=== PATIENT | male | born 1950 | race Caucasian/White ===

== ENCOUNTER 2016-09-18 05:35 | Emergency (ER) | payer BC, OTHER ==
[~2016-09-18] VITALS: Ht 177.8 cm; Wt 105.0 kg
[~2016-09-18 05:35] MED LIST: ASPI325T32 PO; ATEN-138 PO; CLOP75TA27 PO; EZET10TA3 PO; FOLI-49 PO; IBUP-1542 PO; ISOS60TA52 PO; LORA-401 PO; OXYC-281 PO; PANT40TA3 PO
[2016-09-18 05:37] VITALS: Ht 177.8 cm; Wt 105.0 kg
[2016-09-18] MEDS ORDERED: ONDANSETRON 4 MG INJ IV STA (06:25)
[2016-09-18] MEDS ORDERED: morphine 4 MG/ML VIAL IV STA (06:25)
--- NOTE | 2016-09-18 07:36 | RADRPT ---
PROCEDURE: XR Chest. TECHNIQUE: Single frontal radiograph. CLINICAL INDICATION: Abdominal Pain. COMPARISON: 04/20/2015. FINDINGS: There is no focal consolidation, pneumothorax, pleural effusions. Cardiomediastinal silhouette is u nremarkable. There are aortic calcifications. IMPRESSION: No acute intrathoracic process. RPTAT: EE .Herbert San MD, MD Date Time Electronically viewed and signed by .Herbert San MD, MD on 09/18/2016 07:40 .C/
[2016-09-18 07:39] LABS: ADD SCAN DIFF NO
[2016-09-18 07:49] LABS: BASOPHILS % 0.3 % (0.0-2.0); EOSINOPHILS # 0.1 10^3/ul (0.0-0.5); EOSINOPHILS % 1.9 % (0.0-7.0); HEMATOCRIT 42.2 % (42.0-52.0); HEMOGLOBIN 13.8 g/dl (14.0-18.0); LYMPHOCYTES # 1.6 10^3/ul (0.8-2.9); LYMPHOCYTES % 26.8 % (15.0-51.0); MEAN CORPUSCULAR HEMOGLOBIN 30.1 pg (29.0-33.0); MEAN CORPUSCULAR HGB CONC 32.7 g/dl (32.0-37.0); MEAN CORPUSCULAR VOLUME 92.1 fl (82.0-101.0); MEAN PLATELET VOLUME 9.7 fl (7.4-10.4); MONOCYTE # 0.5 10^3/ul (0.3-0.9); MONOCYTES % 8.2 % (0.0-11.0); NEUTROPHIL # 3.6 10^3/ul (1.6-7.5); NEUTROPHILS % 62.6 % (39.0-77.0); PLATELET COUNT 164 10^3/UL (140-415); RED BLOOD COUNT 4.58 10^6/ul (4.70-6.10); RED CELL DISTRIBUTION WIDTH 13.4 % (11.5-14.5); WHITE BLOOD COUNT 5.8 10^3/ul (4.8-10.8)
--- NOTE | 2016-09-18 08:03 | RADRPT ---
PROCEDURE: CT ABDOMEN/PELVIS WITHOUT CONTRAST CLINICAL INDICATION: 66-year-old male with abdominal pain. TECHNIQUE: The study was performed utilizing a GE [employer]ed VCT 64-slice CT scanner. Direct axia l sections were obtained through the abdomen and pelvis without the use of intravenous contrast mate rial. Sagittal and coronal reformations were obtained. One or more of the following dose reduction t echniques were utilized: automated exposure control, adjustment of the mA and/or kV according to pat ient's size or use of iterative reconstruction technique. The images were reviewed on a PACS workst [email or web address]. CTD/vol = 20.7 mGy; Total Exam DLP = 1308.7 mGy-cm. COMPARISON: CT abdomen/pelvis December 18, 2013. FINDINGS: Right coronary artery calcifications are noted. There is mild chronic atelectasis and/or scarring w ithin the partially visualized right middle lobe and lingula. There is trace left basilar subsegmen liu atelectasis.. There is no evidence for significant pleural effusion. The liver has a normal si ze and contour without focal areas of abnormal density. No intrahepatic nor extrahepatic biliary edmundo liu dilatation is seen. The gallbladder demonstrates no wall thickening nor pericholecystic fluid. N o biliary stones are evident. The pancreas is without areas of abnormal attenuation. The spleen is identified and has a normal size without abnormal density. The adrenal glands are unremarkable. The kidneys are without abnormal density. No hydroureteronephrosis nor nephroureterolithiasis is evident . The urinary bladder contains urine. There is retained stool identified within the ascending and tr ansverse colon without obstruction.. The appendix is diminutive and is without abnormal thickening or surrounding inflammatory reaction. The prostate is not enlarged. There is no significant free fl uid. There are small bilateral inguinal hernias containing fat. The aortoiliac vessels are mildly calcified but without aneurysmal dilatation. The osseous structures are intact. IMPRESSION: 1. No CT evidence for obstructive uropathy or renal calculi. 2. Retained stool without obstruction. 3. No CT evidence for appendicitis. 4. Small bilateral inguinal hernias containing fat. 5. Vascular calcifications. .eMndez Pruett MD, MD Date Time Electronically viewed and signed by .Mendez Pruett MD, on 09/18/2016 08:03 .Christo
[2016-09-18 08:18] LABS: CHLORIDE 110 mmol/L (97-110); SODIUM 142 mmol/L (135-144)
[2016-09-18 08:19] LABS: POTASSIUM 4.3 mmol/L (3.5-5.1)
[2016-09-18 08:20] LABS: CREATININE 1.25 mg/dl (0.61-1.24)
[2016-09-18 08:21] LABS: ALANINE AMINOTRANSFERASE 30 IU/L (13-69); ALBUMIN/GLOBULIN RATIO 1.21; ALKALINE PHOSPHATASE 86 IU/L (42-121); ANION GAP 9 (8-16); ASPARTATE AMINO TRANSFERASE 23 IU/L (15-46); BILIRUBIN,INDIRECT 0.2 mg/dl (0-1.1); BILIRUBIN,TOTAL 0.2 mg/dl (0.2-1.3); BLOOD UREA NITROGEN 17 mg/dl (7-20); CARBON DIOXIDE 27 mmol/L (21-31); GLUCOSE 99 mg/dl (70-220); TOTAL PROTEIN 7.3 g/dl (6.1-8.1)
[2016-09-18 08:33] LABS: TROPONIN-I < 0.012 ng/ml (0.00-0.12)
[2016-09-18] MEDS ORDERED: PANT40TA3 PO (08:59)
[2016-09-18 09:04] VITALS: BP 137/67; PULSE 51; RESP 12
--- NOTE | 2016-09-18 09:06 | ERD ---
ER Documentation Chief Complaint Date/Time DATE: 09/18/16 TIME: 0623 Chief Complaint pt reports waking with sweats. Pt reports recent constipation HPI 66-year-old male presents to the emergency department complaining of abdominal pain, weakness, sweating. Patient is Amharic speaking only and I am using my staff as a box spring frame builder as well as his son who is helping with history as well. Patient was in his usual state of health. Over the last 24-48 hours, he has had a generalized weakness and occasional constipation. Today he awoke with "sweats." Patient continued to have a burning epigastric discomfort that he rated as a 6 out of 10. It did not radiate. It was localized to the epigastric part of his abdomen. It was associated with no shortness of breath. Patient had no nausea, vomiting, fevers. Patient reports no significant concurrent chest discomfort and feels like this is different from cardiac disease. Patient has no shortness of breath at this time. ROS All systems reviewed and are negative except as per history of present illness. Medications Home Meds Active Scripts Pantoprazole* (Protonix*) 40 Mg Tablet., 40 MG PO BID, #60 TAB Prov:LUCY PAYNE 09/18/16 Reported Medications Ibuprofen* (Ibuprofen*) 600 Mg Tablet, 600 MG PO Q6, TAB 02/11/14 Clopidogrel Bisulfate (Clopidogrel) 75 Mg Tablet, 75 MG PO DAILY, TAB 02/11/14 Ezetimibe* (Zetia*) 10 Mg Tablet, 10 MG PO DAILY, TAB 02/11/14 Aspirin* (Aspirin* EC) 325 Mg Tab, 325 MG PO DAILY, TAB 02/11/14 Pantoprazole* (Protonix*) 40 Mg Tablet., 40 MG PO DAILY, TAB 02/11/14 Oxycodone Hcl-Acetaminophen* (Percocet*) 5-325 Mg Tablet, 1 TAB PO Q4H Y for PAIN, TAB 02/11/14 Lorazepam* (Ativan*) 1 Mg Tablet, 1 MG PO PRN 01/18/13 Isosorbide Mononitrate* (Imdur*) 60 Mg Tab.sr.24h, 60 MG PO DAILY 01/18/13 Atenolol (Tenormin) 25 Mg Tab, 25 MG PO DAILY 01/18/13 Folic Acid* (Folic Acid*) 1 Mg Tablet, 1 MG PO DAILY 01/18/13 Allergies Allergies: Coded Allergies: No Known Drug Allergies (Verified Allergy, Unknown, 02/11/14) PMhx/Soc History of Surgery: Yes (stent placement X 3, 00, 03, 07) Anesthesia Reaction: No Hx Neurological Disorder: No Hx Respiratory Disorders: No Hx Cardiac Disorders: Yes (NM w/stent (several), HTN) Hx Psychiatric Problems: No Hx Miscellaneous Medical Probl: No Hx Alcohol Use: Yes Hx Substance Use: No Hx Tobacco Use: Yes Smoking Status: Light tobacco smoker FmHx Noncontributory for chief complaint Physical Exam Vitals Vital Signs Date Time Temp Pulse Resp B/P Pulse Ox O2 Delivery O2 Flow Rate FiO2 09/18/16 06:53 57 11 138/72 97 Room Air 09/18/16 05:37 98.7 60 16 148/67 100 Physical Exam GENERAL: The patient is well developed and appropriate for usual state of health in no apparent distress HEENT: Pupils equal, round, and reactive to light. EOMI. There is no scleral icterus. NECK: C-spine is soft and supple, there is no meningismus. There is no cervical lymphadenopathy. LUNGS: Clear to auscultation bilaterally. There are no rales, wheezes or rhonchi. HEART: Regular rate and rhythm, no murmurs, clicks, rubs or gallops. ABDOMEN: Soft, non-tender, non-distended. There are bowel sounds in all four quadrants. No rebound or guarding. EXTREMITIES: There is no peripheral cyanosis or edema. No focal swelling or erythema. NEURO: The patient moves all four extremities with 5/5 strength. Cranial nerves II - XII are intact. Normal gait. Alert and oriented SKIN: There is no apparent rash or petechiae. HEME/LYMPHATIC: There is no evidence of excessive bruising or lymphedema. PSYCHIATRIC: The patient does not appear anxious or depressed. Result Diagram: 09/18/1665409/18/16654 Results 24 hrs Laboratory Tests Test 09/18/16 06:55 White Blood Count 5.810^3/ul Red Blood Count 4.5810^6/ul Hemoglobin 13.8g/dl Hematocrit 42.2% Mean Corpuscular Volume 92.1fl Mean Corpuscular Hemoglobin 30.1pg Mean Corpuscular Hemoglobin Concent 32.7g/dl Red Cell Distribution Width 13.4% Platelet Count 75376^3/UL Mean Platelet Volume 9.7fl Neutrophils % 62.6% Lymphocytes % 26.8% Monocytes % 8.2% Eosinophils % 1.9% Basophils % 0.3% Nucleated Red Blood Cells % 0.0/100WBC Neutrophils # 3.610^3/ul Lymphocytes # 1.610^3/ul Monocytes # 0.510^3/ul Eosinophils # 0.110^3/ul Basophils # 0.010^3/ul Nucleated Red Blood Cells # 0.010^3/ul Sodium Level 142mmol/L Potassium Level 4.3mmol/L Chloride Level 110mmol/L Carbon Dioxide Level 27mmol/L Anion Gap 9 Blood Urea Nitrogen 17mg/dl Creatinine 1.25mg/dl Glucose Level 99mg/dl Calcium Level 9.0mg/dl Total Bilirubin 0.2mg/dl Direct Bilirubin 0.00mg/dl Indirect Bilirubin 0.2mg/dl Aspartate Amino Transf (AST/SGOT) 23IU/L Alanine Aminotransferase (ALT/SGPT) 30IU/L Alkaline Phosphatase 86IU/L Troponin I < 0.012ng/ml Total Protein 7.3g/dl Albumin 4.0g/dl Globulin 3.30g/dl Albumin/Globulin Ratio 1.21 Lipase 22U/L Current Medications Medications (Trade) Dose Ordered Sig/Brian Route PRN Reason Start Time Stop Time Status Last Admin Dose Admin Morphine Sulfate (morphine) 4 mg ONCE STAT IV 09/18/16 06:25 09/18/16 06:27 DC 09/18/16 07:03 Ondansetron HCl (Zofran Inj) 4 mg ONCE STAT IV 09/18/16 06:25 09/18/16 06:27 DC 09/18/16 07:03 Procedures/MDM Patient was taken to a room, seen and evaluated. Comfort measures were initiated. Diagnostic tests were ordered and reviewed. 3 LEAD RHYTHM STRIP: Normal sinus rhythm without ectopy EK lead EKG reviewed by myself: Normal Sinus Rhythm Normal Levasy and intervals No ST elevation, depression, or T wave inversion Impression: Normal EKG RADIOLOGY: reviewed with the radiologist REEVALUATION: Patient remained comfortable in appearance. MEDICAL DECISION MAKIN-year-old male presents to the emergency department with nonspecific symptoms including abdominal discomfort and sweating. Differential diagnosis entertained and the patient was broad and potential high acuity up to and including cardiac and GI issues. From a cardiac standpoint, patient's EKG is reassuring as is his troponin. I have offered him observation in the hospital, but he has declined stating this feels different from cardiac issues. He has a clear understanding of the risks and benefits of foregoing observation. From a GI standpoint, patient has low risk lab tests and low risk imaging studies. Overall, patient appears to be clinically well and seems appropriate for outpatient care at this time. Departure Diagnosis: Primary Impression: Abdominal pain Condition: Stable Patient Instructions: Abdominal Pain Referrals: JESSICA MCKEON) (PCP) Additional Instructions: See your doctor for follow-up as discussed. Take a copy of your test results, if appropriate, to this follow-up visit. See your doctor or return here if your symptoms do not improve as expected. At any time, please return to the emergency department for any change or worsening in her symptoms. LUCY PAYNE September 18, 2016 09:06
[2016-09-18 09:21] LABS: ADD UMIC NO; URINE BILIRUBIN (Dip) NEGATIVE (NEGATIVE); URINE BLOOD (Dip) NEGATIVE (NEGATIVE); URINE COLOR LT. YELLOW (YELLOW); URINE GLUCOSE (Dip) NEGATIVE (NEGATIVE); URINE KETONES (Dip) NEGATIVE (NEGATIVE); URINE LEUKOCYTE ESTERASE (Dip) NEGATIVE (NEGATIVE); URINE NITRITE (Dip) NEGATIVE (NEGATIVE); URINE TOTAL PROTEIN (Dip) NEGATIVE (NEGATIVE); URINE UROBILINOGEN (Dip) 1.0 E.U./dL (0.1-1.0)
== END 2016-09-18 09:20 | disposition home or self-care (01) ==
LOC: E/R 05:35
DX: R10.13 Epigastric pain (principal); R40.2252 Coma scale, best verbal response, oriented, at arrival to emergency department; I10 Essential (primary) hypertension; F17.210 Nicotine dependence, cigarettes, uncomplicated; R40.2142 Coma scale, eyes open, spontaneous, at arrival to emergency department; R40.2362 Coma scale, best motor response, obeys commands, at arrival to emergency department; Z98.61 Coronary angioplasty status; Z79.82 Long term (current) use of aspirin
CPT/HCPCS: 71010; 74176; 80053; 81003; 83690; 84484; 85025; J2270; J2405; 36415; 93005; 96374; 96375